=== PATIENT | male | born 1965 | race African-American/Black ===

== ENCOUNTER 2017-03-28 10:33 | Inpatient (IN) | payer SELFPAY ==
[2017-03-28] VITALS (13 sets, daily range): BP systolic 150–212; BP diastolic 88–120; PULSE 58–69; RESP 12–26; TEMP 98.7–99; O2SAT 94–99
[~2017-03-28] VITALS: Ht 172.7 cm; Wt 60.5 kg
[~2017-03-28 10:33] MED LIST: 1-ME1LIQ PO
[2017-03-28] MEDS ORDERED: SODIUM CHLORIDE 0.9% FLUSH 10 ML FLUSH IVF PRN (11:30)
[2017-03-28] MEDS ORDERED: FUROSEMIDE 40 MG/4 ML VIAL IVP ONE (11:30)
--- NOTE | 2017-03-28 11:30 | PD ---
HPI Chief Complaint: Edema Time Seen by Provider: 11:17 Travel History International Travel<30 days: No Contact w/Intl Traveler<30days: No Traveled to known affect area: No History of Present Illness HPI 52-year-old Afro[place] male presents the emergency department with bilateral lower extremity edema and discomfort for the past several days. Patient states he is a smoker and recently developed a cough over the past few days. Patient denies significant fever, chills, or abdominal discomfort. Blood pressure is noted to be elevated in triage at 200/106. Patient currently takes no medication. Patient denies history of liver disease or kidney disease. Patient states he has been coughing up some phlegm in the laceration couple of days. He denies dyspnea with exertion. He states lower extremity edema has been noted for the past week and seems to be worsening. He said increasing achy discomfort. 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 Currently his pain is maybe 3/10. He has no known drug allergies. PFSH Past Medical History Diminished Hearing: No Hypertension: Yes Past Surgical History Surgical History: No Previous Surgery Social History Alcohol Use: No Tobacco Use: Yes (1/2 PPD) Substance Use: Yes (OPIATES DEPENDENT, MARIJUANA, HEROINE, COCCAINE) Allergies-Medications (Allergen,Severity, Reaction): Coded Allergies: No Known Allergies (Unverified , 03/28/17) Reported Meds & Prescriptions Reported Meds & Active Scripts Active No Active Prescriptions or Reported Medications Review of Systems Except as stated in HPI: all other systems reviewed are Neg General / Constitutional: No: Fever, Chills Eyes: No: Visual changes HENT: Positive: Sore Throat, Rhinitis (scratchy), Rhinorrhea, Congestion, No: Headaches, Vertigo, Lightheadedness, Nosebleed, Neck Stiffness, Neck Pain, Gingival Bleeding, Dental Difficulties, Ear Discharge, Earache Cardiovascular: Positive: Edema, No: Chest Pain or Discomfort, Palpitations, Irregular Rhythm, Tachycardia, Diaphoresis, Syncope, Dyspnea on exertion, Varicosities, Varicosities, Phlebitis, Claudication Respiratory: Positive: Cough, Other (see history present illness), No: Shortness of Breath, Wheezing, Sneezing, Orthopnea, Hemoptysis, Night Sweats, Pleuritic Pain Gastrointestinal: No: Nausea, Vomiting, Diarrhea, Abdominal Pain Genitourinary: No: Dysuria Musculoskeletal: No: Pain Skin: No Rash Neurologic: No: Weakness Psychiatric: No: Depression Endocrine: No: Polydipsia Hematologic/Lymphatic: No: Easy Bruising Physical Exam Narrative GENERAL: Patient appears no acute distress. SKIN: Warm and dry. Normal color. Normal turgor. Patient has bilateral nonpitting 2+ edema with question of increased warmth on the right. No obvious signs of cellulitis. Patient has multiple superficial abrasions which are old. HEAD: Atraumatic. Normocephalic. EYES: Pupils equal and round. No scleral icterus. No injection or drainage. ENT: No nasal bleeding or discharge. Mucous membranes pink and moist. NECK: Trachea midline. No JVD. CARDIOVASCULAR: Regular rate and rhythm. No murmurs gallops or rubs. Patient has normal. Both pedal and posterior tibialis of the lower extremities. RESPIRATORY: No accessory muscle use. Crackles in both bases to auscultation. Breath sounds equal bilaterally. No wheezes rales or rhonchi. GASTROINTESTINAL: Abdomen soft, non-tender, nondistended. Hepatic and splenic margins not palpable. MUSCULOSKELETAL: Extremities without clubbing, cyanosis, or edema. No obvious deformities. Negative Homans sign. NEUROLOGICAL: Awake and alert. No obvious cranial nerve deficits. Motor grossly within normal limits. Five out of 5 muscle strength in the arms and legs. Normal speech. PSYCHIATRIC: Appropriate mood and affect; insight and judgment normal. Data Data Last Documented VS Vital Signs Date Time Temp Pulse Resp B/P (MAP) Pulse Ox O2 Delivery O2 Flow Rate FiO2 03/28/17 15:00 66 23 193/120 (144) 99 Room Air 03/28/17 10:34 98.7 Orders Orders Complete Blood Count With Diff (03/28/17 11:23) Comprehensive Metabolic Panel (03/28/17 11:23) B-Type Natriuretic Peptide (03/28/17 11:23) Act Partial Throm Time (Ptt) (03/28/17 11:23) Prothrombin Time / Inr (Pt) (03/28/17 11:23) Magnesium (Mg) (03/28/17 11:23) Ckmb (Isoenzyme) Profile (03/28/17 11:23) Troponin I (03/28/17 11:23) Urinalysis - C+S If Indicated (03/28/17 11:23) Iv Access Insert/Monitor (03/28/17 11:23) Electrocardiogram (03/28/17 11:23) Ecg Monitoring (03/28/17 11:23) Oximetry (03/28/17 11:23) Oxygen Administration (03/28/17 11:23) Chest, Single Ap (03/28/17 11:23) Sodium Chloride 0.9% Flush (Ns Flush) (03/28/17 11:30) Furosemide Inj (Lasix Inj) (03/28/17 11:30) Lactic Acid (03/28/17 11:23) CKMB (03/28/17 11:40) CKMB% (03/28/17 11:40) Us Leg Venous Doppler Bilat (03/28/17 12:36) Lisinopril (Prinivil) (03/28/17 13:15) Nitroglycerin 2% Oint (Nitroglycerin 2% (03/28/17 13:15) Labs Laboratory Tests Test 03/28/17 11:40 03/28/17 11:45 White Blood Count 8.6 TH/MM3 Red Blood Count 5.09 MIL/MM3 Hemoglobin 12.4 GM/DL Hematocrit 39.2 % Mean Corpuscular Volume 76.9 FL Mean Corpuscular Hemoglobin 24.4 PG Mean Corpuscular Hemoglobin Concent 31.8 % Red Cell Distribution Width 17.1 % Platelet Count 191 TH/MM3 Mean Platelet Volume 7.5 FL Neutrophils (%) (Auto) 68.0 % Lymphocytes (%) (Auto) 22.3 % Monocytes (%) (Auto) 7.9 % Eosinophils (%) (Auto) 1.4 % Basophils (%) (Auto) 0.4 % Neutrophils # (Auto) 5.9 TH/MM3 Lymphocytes # (Auto) 1.9 TH/MM3 Monocytes # (Auto) 0.7 TH/MM3 Eosinophils # (Auto) 0.1 TH/MM3 Basophils # (Auto) 0.0 TH/MM3 CBC Comment DIFF FINAL Differential Comment Prothrombin Time 10.7 SEC Prothromb Time International Ratio 1.0 RATIO Activated Partial Thromboplast Time 29.2 SEC Blood Urea Nitrogen 8 MG/DL Creatinine 1.09 MG/DL Random Glucose 85 MG/DL Total Protein 6.9 GM/DL Albumin 3.2 GM/DL Calcium Level 8.8 MG/DL Magnesium Level 2.2 MG/DL Alkaline Phosphatase 74 U/L Aspartate Amino Transf (AST/SGOT) 25 U/L Alanine Aminotransferase (ALT/SGPT) 23 U/L Total Bilirubin 0.3 MG/DL Sodium Level 141 MEQ/L Potassium Level 4.2 MEQ/L Chloride Level 108 MEQ/L Carbon Dioxide Level 28.1 MEQ/L Anion Gap 5 MEQ/L Estimat Glomerular Filtration Rate 86 ML/MIN Lactic Acid Level 0.7 mmol/L Total Creatine Kinase 462 U/L Creatine Kinase MB 2.9 NG/ML Creatine Kinase MB % 0.6 % Troponin I LESS THAN 0.02 NG/ML B-Type Natriuretic Peptide 71 PG/ML Urine Color YELLOW Urine Turbidity CLEAR Urine pH 7.5 Urine Specific [place] 1.021 Urine Protein TRACE mg/dL Urine Glucose (UA) NEG mg/dL Urine Ketones NEG mg/dL Urine Occult Blood NEG Urine Nitrite NEG Urine Bilirubin NEG Urine Urobilinogen LESS THAN 2.0 MG/DL Urine Leukocyte Esterase NEG Urine RBC 1 /hpf Urine WBC 1 /hpf Urine Mucus FEW /lpf Microscopic Urinalysis Comment CULT NOT INDICATED MDM Medical Decision Making Medical Screen Exam Complete: Yes Emergency Medical Condition: Yes Medical Record Reviewed: Yes Differential Diagnosis Pedal edema. CHF. Hypertension. Renal disease. Liver disease. Electrolyte imbalance. Decreased albumin. Tumor. Narrative Course Patient appears medically stable at time of exam. Chest x-ray and EKG are ordered. Labs ordered including CBC, CMP, proBNP, lactic acid, cardiac panel, coagulation studies, magnesium, and urinalysis. IV access is obtained patient is given 40 mg Lasix IV. EKG shows left anterior fascicular block with moderate T wave abnormality with inferior ischemia considered. This is reviewed with Dr. Cornell. CBC is unremarkable. Coagulation studies are normal. Urinalysis is normal. CMP shows no acute abnormalities with a GFR of 86, creatinine of 1.09. Lactic acid 0.7. On 0.02. BNP is 71. Creatinine kinase is slightly elevated at 462. Albumin slightly low at 3.2. Urinalysis is unremarkable. Patient is discussed with Dr. Cornell who recommends ultrasounds of both lower extremities to rule out DVT. Patient is given 20 mg lisinopril by mouth, as well as 1 inch nitroglycerin paste for his continued systolic blood pressure over 200. Ultrasound shows no significant findings in both lower extremities. Patient is discussed with Dr. Wilde regarding the patient and his ongoing hypertension. Dr. Cornell recommends admitting the patient to observation to get his blood pressure under control. Call was placed to the hospitalist for admission. Diagnosis Primary Impression: Hypertensive crisis Additional Impression: Pedal edema Admitting Information Admitting Physician Requests: Observation Scripts No Active Prescriptions or Reported Meds Condition: Stable Edilson Parsons Mar 28, 2017 11:30
--- NOTE | 2017-03-28 11:40 | RADRPT ---
EXAM DATE/TIME: 03/28/2017 11:39 [facility] COMPARISON: CHEST PA & LAT, January 05, 2015, 22:03. INDICATIONS : Swollen ankles MEDICAL HISTORY : None. SURGICAL HISTORY : None. ENCOUNTER: Initial ACUITY: 2 days PAIN SCORE: 0/10 LOCATION: Bilateral chest FINDINGS: A single view of the chest demonstrates the lungs to be symmetrically aerated without evidence of mas s, infiltrate or effusion. The cardiomediastinal contours are unremarkable. Osseous structures are intact. CONCLUSION: Normal examination for a patient of this age. No significant change has occurred. Kenan Burgess MD on March 28, 2017 at 11:38 Board Certified Radiologist. This report was verified electronically.
[2017-03-28 11:54] LABS: AUTOMATED NEUTROPHIL # 5.9 TH/MM3 (1.8-7.7); BASOPHIL % 0.4 % (0.0-2.0); EOSINOPHIL # 0.1 TH/MM3 (0-0.4); EOSINOPHIL % 1.4 % (0.0-4.0); HEMATOCRIT 39.2 % (39.0-51.0); HEMO FLAGS DIFF FINAL; LYMPH % 22.3 % (9.0-44.0); LYMPHOCYTE # 1.9 TH/MM3 (1.0-4.8); MEAN CELL VOLUME 76.9 FL (80.0-100.0); MEAN CORPUSCULAR HEMOGLOBIN 24.4 PG (27.0-34.0); MEAN CORPUSCULAR HGB CONC 31.8 % (32.0-36.0); MONO % 7.9 % (0.0-8.0); PLATELET COUNT 191 TH/MM3 (150-450); RED BLOOD COUNT 5.09 MIL/MM3 (4.50-5.90); RED CELL DISTRIBUTION WIDTH 17.1 % (11.6-17.2); WHITE BLOOD COUNT 8.6 TH/MM3 (4.0-11.0)
[2017-03-28 12:00] LABS: BLOOD, URINE NEG (NEG); GLUCOSE,URINE NEG (NEG); KETONE, URINE NEG (NEG); MUCUS URINE FEW /lpf (OCC); NITRITE,URINE NEG (NEG); PH, URINE 7.5 (5.0-8.5); URINE COLOR YELLOW (YELLW/STRAW)
[2017-03-28 12:02] LABS: COMMENT (UR) CULT NOT INDICATED; CULTURE IF INDICATED CULT NOT INDICATED
[2017-03-28 12:07] LABS: APTT (PATIENT) 29.2 SEC (24.3-30.1); PROTHROMBIN TIME - PATIENT 10.7 SEC (9.8-11.6)
[2017-03-28 12:12] LABS: ALT (GPT) 23 U/L (12-78); ANION GAP 5 MEQ/L (5-15); AST (GOT) 25 U/L (15-37); BICARBONATE 28.1 MEQ/L (21.0-32.0); BLOOD UREA NITROGEN 8 MG/DL (7-18); CHLORIDE 108 MEQ/L (98-107); GLOMERULAR FILTRATION RATE 86 ML/MIN (>89); MAGNESIUM 2.2 MG/DL (1.5-2.5); POTASSIUM 4.2 MEQ/L (3.5-5.1); SODIUM (NA) 141 MEQ/L (136-145)
[2017-03-28 12:16] LABS: ALKALINE PHOSPHATASE 74 U/L (45-117); CREATINE KINASE 462 U/L (39-308); TOTAL BILIRUBIN ADULT 0.3 MG/DL (0.2-1.0)
[2017-03-28 12:28] LABS: CKMB 2.9 NG/ML (0.5-3.6)
[2017-03-28] MEDS ORDERED: NITROGLYCERIN 2% OINT 1 GM PACKET TOPICAL ONE (13:15)
[2017-03-28] MEDS ORDERED: LISINOPRIL 20 MG TAB PO ONE (13:15)
--- NOTE | 2017-03-28 15:07 | RADRPT ---
EXAM DATE/TIME: 03/28/2017 14:19 [facility] COMPARISON: No previous studies available for comparison. INDICATIONS : Bilateral leg swelling. MEDICAL HISTORY : Hypertension. Multisubstance use. SURGICAL HISTORY : None. ENCOUNTER: Initial ACUITY: 3 days PAIN SCORE: 3/10 LOCATION: Bilateral leg. TECHNIQUE: Venous ultrasound of the left and right leg was performed from the inguinal ligament to the proximal calf. Real-time, color Doppler and spectral tracing, compression and augmentation techniques were us ed. FINDINGS: RIGHT LEG: There is normal compressibility of the deep venous system from the inguinal region to the proximal ca lf. No echogenic clot is seen in the lumen of the common femoral, femoral, popliteal, and posterior tibial veins. There is a normal response of the venous system to proximal and distal augmentation an d respiration. LEFT LEG: There is normal compressibility of the deep venous system from the inguinal region to the proximal ca lf. No echogenic clot is seen in the lumen of the common femoral, femoral, popliteal, and posterior tibial veins. There is a normal response of the venous system to proximal and distal augmentation an d respiration. CONCLUSION: Normal examination. Jose Lopes Jr., MD on March 28, 2017 at 15:04 Board Certified Radiologist. This report was verified electronically.
[2017-03-28] MEDS ORDERED: LACTULOSE SYRUP 20 GM/30 ML CUP PO PRN (16:15)
[2017-03-28] MEDS ORDERED: ACETAMINOPHEN 325 MG TAB PO PRN (16:15)
[2017-03-28] MEDS ORDERED: SODIUM CHLORIDE 0.9% FLUSH 10 ML FLUSH IV FLUSH PRN (16:15)
[2017-03-28] MEDS ORDERED: SENNOSIDES 8.6 MG TAB PO PRN (16:15)
[2017-03-28] MEDS ORDERED: BISACODYL 10 MG SUPP RECTAL PRN (16:15)
[2017-03-28] MEDS ORDERED: MAGNESIUM HYDROXIDE SUSP 30 ML CUP PO PRN (16:15)
[2017-03-28] MEDS ORDERED: ENALAPRILAT 1.25 MG/ML VIAL IV PUSH PRN (16:15)
--- NOTE | 2017-03-28 16:39 | HHI.HP ---
[facility] Service Family Medicine Primary Care Physician No Primary Care Physician Admission Diagnosis Hypertension/Pedal Edema Diagnoses: International Travel<30 Days: No Contact w/Intl Traveler<30days: No History of Present Illness Patient is a 52 year old male with a history of HTN who presents to the ED for evaluation of LE edema. Onset was 2-3 days ago, sudden onset, not associated with pain. He does have [place] Horses over the last few months, lasting 4 minutes at a time. He does [employer] work for a living and has no symptoms with exertion. BP improving on meds given in ED but still elevated. He denies any other symptoms. Diet is notable for lots of salt in home-cooked meals, meats. He eats a good amount of vegetables. No history of HTN in the past, but has had intermittent headaches, but none in the last couple of days. Review of Systems Constitutional: DENIES: Fever, Chills Eyes: COMPLAINS OF: Blurred vision (floaters), DENIES: Diplopia Ears, nose, mouth, throat: DENIES: Hearing loss, Running Nose, Epistaxis Respiratory: DENIES: Cough, Hemoptysis, Sputum production, Shortness of breath Cardiovascular: COMPLAINS OF: Lower Extremity Edema, DENIES: Chest pain, Palpitations, Syncope Genitourinary: DENIES: Urinary frequency, Hematuria, Dysuria Musculoskeletal: DENIES: Muscle aches, Joint Swelling, Back pain, Neck pain Integumentary: DENIES: Pruritus, Rash Hematologic/lymphatic: DENIES: Bruising, Lymphadenopathy Immunologic/allergic: DENIES: Eczema, Urticaria Neurologic: COMPLAINS OF: Headache (intermittent), DENIES: Abnormal gait, Paresthesias, Seizures, Poor Balance Psychiatric: DENIES: Anxiety, Depression Past Family Social History Past Medical History HTN - diagnosed 2 years ago, untreated Past Surgical History None Reported Medications Reported Meds & Active Scripts Active No Active Prescriptions or Reported Medications Allergies: Coded Allergies: No Known Allergies (Unverified , 03/28/17) Active Ordered Medications Inpatient Medications Acetaminophen (Tylenol) 650 mg Q6H PRN PO PAIN SCALE 1 TO 10, FEVER >101; Start 03/28/17 at 16:15; Status UNV Bisacodyl (Dulcolax Supp) 10 mg DAILY PRN RECTAL SEVERE CONSITIPATION; Start 03/28/17 at 16:15; Status UNV Clonidine (Catapres) 0.1 mg Q6H PRN PO SBP> OR = 180, DBP> OR = 100; Start at 16:15; Status UNV Enalaprilat (Vasotec Inj) 1.25 mg Q6H PRN IV PUSH SBP> OR = 180, DBP> OR = 100 ; Start 03/28/17 at 16:15; Status UNV Enoxaparin Sodium (Lovenox Inj) 40 mg Q24H SQ ; Start 03/28/17 at 16:15; Status UNV Furosemide (Lasix Inj) 40 mg ONCE ONCE IVP Last administered on 03/28/17 11: 56; Start 03/28/17 at 11:30; Stop 03/28/17 at 11:31; Status DC Lactulose (Lactulose Liq) 30 ml DAILY PRN PO SEVERE CONSITIPATION; Start 03/28 at 16:15; Status UNV Lisinopril (Prinivil) 20 mg ONCE ONCE PO Last administered on 03/28/17 13:26 ; Start 03/28/17 at 13:15; Stop 03/28/17 at 13:16; Status DC Magnesium Hydroxide (Milk Of Magnesia Liq) 30 ml Q12H PRN PO Mild constipation ; Start 03/28/17 at 16:15; Status UNV Nitroglycerin (Nitroglycerin 2% Oint) 1 inch ONCE ONCE TOPICAL Last administered on 03/28/17 13:27; Start 03/28/17 at 13:15; Stop 03/28/17 at 13 :16; Status DC Senna/Docusate Sodium (Melva-Colace) 1 tab BID PO ; Start 03/28/17 at 21:00; Status UNV Sennosides (Senokot) 17.2 mg Q12H PRN PO Moderate constipation; Start at 16:15; Status UNV Sodium Chloride (NS Flush) 2 ml BID IV FLUSH ; Start 03/28/17 at 21:00; Status UNV Family History HTN: father ( CAD/bypass complications), GM, brother, self Children: lupus in daughter Social History Cigarettes: 1 PPD x 10+ years EtOH: occasional Illicit: oxycodone off streets, 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 SKIN: Warm and dry. Large tattoo on upper back. HEAD: Atraumatic. Normocephalic. EYES: PERRLA. EOMI. No scleral icterus. Mild injection noted. ENT: No nasal bleeding or discharge. Mucous membranes pink and moist. Poor dentition. NECK: Trachea midline. No JVD. No LAD. CARDIOVASCULAR: Regular rate and rhythm. No murmurs on auscultation. Normal PMI. Distal pulses 2+ bilaterally in UE and LEs. RESPIRATORY: No accessory muscle use. Clear to auscultation without wheezes or rhonchi. Breath sounds equal bilaterally. GASTROINTESTINAL: Abdomen soft, non-tender, nondistended. Hepatic and splenic margins not palpable. MUSCULOSKELETAL: Extremities without clubbing, cyanosis, or edema. No obvious deformities. NEUROLOGICAL: Awake and alert. No obvious CN deficits. Motor grossly within normal limits. 5/5 muscle strength in the arms and legs. Normal speech. PSYCHIATRIC: Appropriate mood and affect; insight and judgment normal. Laboratory Laboratory Tests Test 03/28/17 11:40 03/28/17 11:45 White Blood Count 8.6 Red Blood Count 5.09 Hemoglobin 12.4 Hematocrit 39.2 Mean Corpuscular Volume 76.9 Mean Corpuscular Hemoglobin 24.4 Mean Corpuscular Hemoglobin Concent 31.8 Red Cell Distribution Width 17.1 Platelet Count 191 Mean Platelet Volume 7.5 Neutrophils (%) (Auto) 68.0 Lymphocytes (%) (Auto) 22.3 Monocytes (%) (Auto) 7.9 Eosinophils (%) (Auto) 1.4 Basophils (%) (Auto) 0.4 Neutrophils # (Auto) 5.9 Lymphocytes # (Auto) 1.9 Monocytes # (Auto) 0.7 Eosinophils # (Auto) 0.1 Basophils # (Auto) 0.0 CBC Comment DIFF FINAL Differential Comment Prothrombin Time 10.7 Prothromb Time International Ratio 1.0 Activated Partial Thromboplast Time 29.2 Blood Urea Nitrogen 8 Creatinine 1.09 Random Glucose 85 Total Protein 6.9 Albumin 3.2 Calcium Level 8.8 Magnesium Level 2.2 Alkaline Phosphatase 74 Aspartate Amino Transf (AST/SGOT) 25 Alanine Aminotransferase (ALT/SGPT) 23 Total Bilirubin 0.3 Sodium Level 141 Potassium Level 4.2 Chloride Level 108 Carbon Dioxide Level 28.1 Anion Gap 5 Estimat Glomerular Filtration Rate 86 Lactic Acid Level 0.7 Total Creatine Kinase 462 Creatine Kinase MB 2.9 Creatine Kinase MB % 0.6 Troponin I LESS THAN 0.02 B-Type Natriuretic Peptide 71 Urine Color YELLOW Urine Turbidity CLEAR Urine pH 7.5 Urine Specific [place] 1.021 Urine Protein TRACE Urine Glucose (UA) NEG Urine Ketones NEG Urine Occult Blood NEG Urine Nitrite NEG Urine Bilirubin NEG Urine Urobilinogen LESS THAN 2.0 Urine Leukocyte Esterase NEG Urine RBC 1 Urine WBC 1 Urine Mucus FEW Microscopic Urinalysis Comment CULT NOT INDICATED Result Diagram: 03/28/17 1140 03/28/17 1140 Imaging Last Impressions Lower Extremity Ultrasound 03/28/17 1236 Signed Impressions: Service Date/Time: Tuesday, March 28, 2017 14:19 - CONCLUSION: Normal examination. Jose Lopes Jr., MD Chest X-Ray 03/28/17 1123 Signed Impressions: Service Date/Time: Tuesday, March 28, 2017 11:39 - CONCLUSION: Normal examination for a patient of this age. No significant change has occurred. Kenan Burgess MD Caprini VTE Risk Assessment Caprini VTE Risk Assessment: Mod/High Risk (score >= 2) Caprini Risk Assessment Model Point Value = 1 Point Value = 2 Point Value = 3 Point Value = 5 Age 41-60 Minor surgery BMI > 25 kg/m2 Swollen legs Varicose veins or History of unexplained or recurrent spontaneous Oral contraceptives or hormone replacement Sepsis (< 1 month) Serious lung disease, including pneumonia (< 1 month) Abnormal pulmonary function Acute myocardial infarction Congestive heart failure (< 1 month) History of inflammatory bowel disease Medical patient at bed rest Age 61-74 Arthroscopic surgery Major open surgery (> 45 min) Laparoscopic surgery (> 45 min) Malignancy Confined to bed (> 72 hours) Immobilizing plaster cast Central venous access Age >= 75 History of VTE Family history of VTE Factor V Leiden Prothrombin [id number] Lupus anticoagulant Anticardiolipin antibodies Elevated serum homocysteine Heparin-induced thrombocytopenia Other congenital or acquired thrombophilia Stroke (< 1 month) Elective arthroplasty Hip, pelvis, or leg fracture Acute spinal cord injury (< 1 month) Prophylaxis Regimen Total Risk Factor Score Risk Level Prophylaxis Regimen 0-1 Low Early ambulation 2 Moderate Order ONE of the following: *Sequential Compression Device (SCD) *Heparin 5000 units SQ BID 3-4 Higher Order ONE of the following medications: *Heparin 5000 units SQ TID *Enoxaparin/Lovenox 40 mg SQ daily (WT < 150 kg, CrCl > 30 mL/min) *Enoxaparin/Lovenox 30 mg SQ daily (WT < 150 kg, CrCl > 10-29 mL/min) *Enoxaparin/Lovenox 30 mg SQ BID (WT < 150 kg, CrCl > 30 mL/min) AND/OR *Sequential Compression Device (SCD) 5 or more Highest Order ONE of the following medications: *Heparin 5000 units SQ TID (Preferred with Epidurals) *Enoxaparin/Lovenox 40 mg SQ daily (WT < 150 kg, CrCl > 30 mL/min) *Enoxaparin/Lovenox 30 mg SQ daily (WT < 150 kg, CrCl > 10-29 mL/min) *Enoxaparin/Lovenox 30 mg SQ BID (WT < 150 kg, CrCl > 30 mL/min) AND *Sequential Compression Device (SCD) Assessment and Plan Assessment and Plan 52 year old male who presents with HTN urgency and LE edema Admit to observation Code Status Full Code Discussed Condition With SDW Dr. Velarde, WDW Dr. Lieberman Problem List: (1) Hypertensive urgency ICD Codes: I16.0 - Hypertensive urgency Status: Acute Plan: Presented with HTN urgency, initial BP 205/106. Given lisinopril and nitropaste. BP remained elevated so residents paged for admission. BP 170/102 on re-evaluation at 1630, appropriately responsive. Goal BP <160/90 tonight, with overall goal <140/90 * Admit to observation * VS q4hr * Amlodipine 5mg daily to initiate now * Clonidine PRN 0.1mg PO for BP >180/100 * Cardiac enzymes and troponin to trend along with EKG * Lasix 40mg x 1 in ED, will continue Lasix 40mg daily for now * Echocardiogram * Repeat labs in AM * If blood pressure does not improve with by mouth medications, will initiate nicardipine drip as needed (2) HTN (hypertension) ICD Codes: I10 - HTN (hypertension) Status: Chronic Plan: As above (3) Tobacco dependency ICD Codes: F17.200 - Tobacco dependency Status: Acute Plan: Declines nicotine patch Counseling on tobacco cessation UDS ordered due to history of tobacco dependence (4) Fluids/Electrolytes/Nutrition/Prophylaxis Status: Acute Plan: Fluids: tolerating PO Electrolytes: monitor and replete as needed Nutrition: heart-healthy diet DVT Prophylaxis: Early ambulation. SCDs. Lovenox GI Prophylaxis: None indicated Angelique Epps MD R2 Mar 28, 2017 16:39
[2017-03-28] MEDS: ENOXAPARIN SODIUM 40 MG/0.4 ML SYRINGE SQ SCH (17:00)
[2017-03-28] MEDS: cloNIDine HCL 0.1 MG TAB PO PRN ×2 (18:04→21:16)
[2017-03-28] MEDS ORDERED: niCARdipine INJ 25 MG in SODIUM CHLOR 0.9% 250 ML INJ 240 ML IV PRN (18:30)
[2017-03-28 18:47] LABS: CREATINE KINASE 419 U/L (39-308)
[2017-03-28] MEDS: DOCUSATE SODIUM 50 MG/SENNA 8.6 MG TAB PO SCH (20:41)
[2017-03-28] MEDS: SODIUM CHLORIDE 0.9% FLUSH 10 ML FLUSH IV FLUSH SCH (20:41)
[2017-03-28] MEDS ORDERED: FUROSEMIDE 40 MG/4 ML VIAL IV PUSH ONE (20:45)
[2017-03-28] MEDS ORDERED: CHLORHEXIDINE GLUCONATE 2 % 1 PACK (2 CLOTHS)(extra cloths) TOPICAL PRN (20:45)
[2017-03-28] MEDS: CHLORHEXIDINE GLUCONATE 2 % 1 PACK (2 CLOTHS)(taper/protocol) TOPICAL SCH (22:27)
[2017-03-28] MEDS ORDERED: amLODIPine BESYLATE 5 MG TAB PO ONE (22:30)
[2017-03-29] VITALS (18 sets, daily range): BP systolic 118–188; BP diastolic 83–113; PULSE 57–85; RESP 17–31; TEMP 98.1–98.9; O2SAT 94–100
[2017-03-29 00:06] LABS: CREATINE KINASE 376 U/L (39-308)
[2017-03-29 00:18] LABS: CKMB 1.9 NG/ML (0.5-3.6)
[2017-03-29 05:47] LABS: AUTOMATED NEUTROPHIL # 6.7 TH/MM3 (1.8-7.7); BASOPHIL # 0.1 TH/MM3 (0-0.2); BASOPHIL % 0.5 % (0.0-2.0); EOSINOPHIL # 0.1 TH/MM3 (0-0.4); EOSINOPHIL % 1.2 % (0.0-4.0); HEMATOCRIT 42.8 % (39.0-51.0); HEMO FLAGS DIFF FINAL; LYMPH % 22.6 % (9.0-44.0); LYMPHOCYTE # 2.2 TH/MM3 (1.0-4.8); MEAN CELL VOLUME 76.9 FL (80.0-100.0); MEAN CORPUSCULAR HEMOGLOBIN 24.6 PG (27.0-34.0); MONO % 7.8 % (0.0-8.0); NEUT % 67.9 % (16.0-70.0); PLATELET COUNT 208 TH/MM3 (150-450); RED BLOOD COUNT 5.56 MIL/MM3 (4.50-5.90); WHITE BLOOD COUNT 9.9 TH/MM3 (4.0-11.0)
[2017-03-29 06:10] LABS: BICARBONATE 31.3 MEQ/L (21.0-32.0); POTASSIUM 3.6 MEQ/L (3.5-5.1)
[2017-03-29] MEDS ORDERED: POTASSIUM CHLORIDE 20 MEQ CONTROLLED RELEASE TAB PO ONE (07:00)
[2017-03-29] MEDS ORDERED: LISINOPRIL 20 MG TAB PO ONE (08:30)
[2017-03-29] MEDS ORDERED: FUROSEMIDE 40 MG TAB PO SCH (09:00)
[2017-03-29] MEDS ORDERED: amLODIPine BESYLATE 5 MG TAB PO SCH (09:00)
[2017-03-29] MEDS: HYDROCHLOROTHIAZIDE 25 MG TAB PO SCH (09:28)
[2017-03-29] MEDS: SODIUM CHLORIDE 0.9% FLUSH 10 ML FLUSH IV FLUSH SCH ×2 (09:28→20:34)
[2017-03-29] MEDS: DOCUSATE SODIUM 50 MG/SENNA 8.6 MG TAB PO SCH ×2 (09:28→20:34)
--- NOTE | 2017-03-29 12:22 | ECHRPT ---
Indication: hypertensive heart disease CONCLUSIONS The left ventricular systolic function is normal with an estimated ejection fraction in the range of 55-60%. Normal left ventricular size. Mild concentric left ventricular hypertrophy. No regional wall motion abnormalities are present. Structurally normal mitral valve. Trace mitral valve regurgitation. Trace aortic valve regurgitation. There is trace tricuspid valve regurgitation. The estimated pulmonary arterial pressure is 26 mmHg. BP: 157 / 102 HR: 72 Rhythm: Sinus MEASUREMENTS (Male / Female) Normal Values Technical Quality:Good 2D ECHO LV Diastolic Diameter PLAX 4.8 cm 4.2 - 5.9 / 3.9 - 5.3 cm LV Systolic Diameter PLAX 3.3 cm IVS Diastolic Thickness 1.2 cm 0.6 - 1.0 / 0.6 - 0.9 cm LVPW Diastolic Thickness 1.3 cm 0.6 - 1.0 / 0.6 - 0.9 cm LV Relative Wall Thickness 0.5 RV Internal Dim ED PLAX 2.2 cm LVOT Diameter 2.0 cm LA Systolic Diameter LX 3.0 cm 3.0 - 4.0 / 2.7 - 3.8 cm LV Ejection Fraction MOD 4C 59.5 % LV Cardiac Index MOD 4C 3184.0 cm/minm LV Ejection Fraction 4C AL 61.4 % LV Cardiac Index 4C AL 3412.2 cm/minm M-MODE Aortic Root Diameter MM 3.1 cm AV Cusp Separation MM 2.2 cm DOPPLER AV Peak Velocity 153.0 cm/s AV Peak Gradient 9.4 mmHg AI Peak Velocity 486.0 cm/s AI Peak Gradient 94.5 mmHg AI Pressure Half Time 489.5 ms LVOT Peak Velocity 123.0 cm/s LVOT Peak Gradient 6.1 mmHg AV Area Cont Eq pk 2.5 cm MV Area PHT 2.3 cm Mitral E Point Velocity 64.7 cm/s Mitral A Point Velocity 97.7 cm/s Mitral E to A Ratio 0.7 LV E' Lateral Velocity 4.0 cm/s Mitral E to LV E' Lateral Ratio 16.2 LV E' Septal Velocity 5.4 cm/s Mitral E to LV E' Septal Ratio 12.1 TR Peak Velocity 205.0 cm/s TR Peak Gradient 16.8 mmHg Right Atrial Pressure 10.0 mmHg Pulmonary Artery Systolic Pressu 26.8 mmHg Right Ventricular Systolic Press 26.8 mmHg PV Peak Velocity 105.0 cm/s PV Peak Gradient 4.4 mmHg FINDINGS LEFT VENTRICLE The left ventricular systolic function is normal with an estimated ejection fraction in the range of 55-60%. Normal left ventricular size. Mild concentric left ventricular hypertrophy. No regional wall motion abnormalities are present. RIGHT VENTRICLE Normal right ventricular size and systolic function. LEFT ATRIUM The left atrial size is normal. RIGHT ATRIUM The right atrial size is normal. ATRIAL SEPTUM Normal atrial septal thickness without atrial level shunting by limited color doppler interrogation. AORTA The aortic root and proximal ascending aorta are normal in size on limited imaging. MITRAL VALVE Structurally normal mitral valve. Trace mitral valve regurgitation. AORTIC VALVE Trileaflet aortic valve. Trace aortic valve regurgitation. TRICUSPID VALVE Structurally normal tricuspid valve. There is trace tricuspid valve regurgitation. The estimated pulmonary arterial pressure is 26 mmHg. PULMONARY VALVE No pulmonary valve regurgitation or stenosis. VESSELS The inferior vena cava is normal in size. PERICARDIUM No pericardial effusion. Juan Ravi MD (Electronically Signed) Final Date:29 March 2017 12:22
--- NOTE | 2017-03-29 12:30 | HHI.FPPN ---
Subjective Remarks Patient states that he is doing much better this morning. His edema has fully resolved. He states that he had left cramps continuously overnight, but is a chronic condition for him. No chest pain, no shortness of breath, no abdominal pain, no nausea vomiting, no diarrhea constipation. No fevers or chills. When asked about his usual regimen, he states that he eats 2 meals a day and has abdominal pain after meals. He usually has 2 BMs a day, but no chronic diarrhea. He states that he usually does cocaine and opiates. He admits that he is addicted. He states that he does drugs to get away from his usual life. He is having a rough time right now. (Merle Velarde MD R1) Objective Vitals Vital Signs Date Time Temp Pulse Resp B/P (MAP) Pulse Ox O2 Delivery O2 Flow Rate FiO2 03/29/17 12:00 79 31 100 03/29/17 10:43 67 27 165/97 (119) 99 03/29/17 10:40 72 28 168/105 (126) 97 03/29/17 10:00 75 30 96 03/29/17 09:30 73 17 152/93 (112) 96 03/29/17 09:15 83 22 154/94 (114) 96 03/29/17 09:00 85 20 154/93 (113) 95 03/29/17 08:45 76 21 157/92 (113) 96 03/29/17 08:30 68 18 153/91 (111) 94 03/29/17 08:15 68 22 146/86 (106) 95 03/29/17 08:00 73 22 147/90 (109) 95 03/29/17 06:21 72 157/102 03/29/17 06:00 72 03/29/17 05:44 63 186/113 03/29/17 04:00 61 03/29/17 04:00 98.9 61 22 188/112 (137) 96 03/29/17 02:00 57 03/29/17 00:00 60 03/29/17 00:00 98.9 61 19 173/113 (133) 97 03/28/17 22:00 61 03/28/17 20:00 62 03/28/17 20:00 99.0 61 26 178/98 (124) 94 03/28/17 19:00 62 20 150/88 (108) 94 Room Air 03/28/17 18:33 60 15 205/102 (136) 97 Room Air 03/28/17 17:52 69 24 205/109 (141) 96 Room Air 03/28/17 17:00 170/104 (126) 03/28/17 15:00 66 23 193/120 (144) 99 Room Air 03/28/17 14:16 59 13 210/120 (150) 97 Room Air 03/28/17 13:02 61 13 212/115 (147) 94 Room Air I/O 03/28/17 03/28/17 03/28/17 03/29/17 03/29/17 03/29/17 07:00 15:00 23:00 07:00 15:00 23:00 Intake Total 100 ml Output Total 650 ml 300 ml 1400 ml Balance -650 ml -300 ml -1300 ml Intake Oral 100 ml Output Urine Total 650 ml 300 ml 1400 ml # Voids 1 1 # Bowel Movements 0 (Merle Velarde MD R1) Result Diagram: 03/29/17 0430 03/29/17 0430 Imaging Last Impressions Lower Extremity Ultrasound 03/28/17 1236 Signed Impressions: Service Date/Time: Tuesday, March 28, 2017 14:19 - CONCLUSION: Normal examination. Jose Lopes Jr., MD Chest X-Ray 03/28/17 1123 Signed Impressions: Service Date/Time: Tuesday, March 28, 2017 11:39 - CONCLUSION: Normal examination for a patient of this age. No significant change has occurred. Kenan Burgess MD Objective Remarks GENERAL: Well-nourished, well-developed thin patient laying in bed, in no acute distress. SKIN: Warm and dry. HEAD: Normocephalic. EYES: No scleral icterus. No injection or drainage. NECK: Supple, trachea midline. No JVD or lymphadenopathy. CARDIOVASCULAR: Regular rate and rhythm without murmurs, gallops, or rubs. RESPIRATORY: Breath sounds equal bilaterally. No accessory muscle use. GASTROINTESTINAL: Abdomen soft, non-tender, nondistended. EXTREMITIES: No cyanosis. Nonedematous, significant improvement from yesterday. NEUROLOGICAL: Awake, alert. Non-focal. (Merle Velarde MD R1) A/P Assessment and Plan 52 year old male who presents with HTN urgency and LE edema Admitted to inpatient in order to start drip. Discharge Planning Likely tomorrow after observing BP for today and d/cing nicardipine drip. (Merle Velarde MD R1) Attending Attestation THIS CASE WAS DISCUSSED IN DETAIL WITH THE RESIDENT PHYSICIANS Dr Brooks,Dr Epps, Dr Flannery and Dr Corey. I HAVE REVIEWED THE RECORD AND AGREE WITH THE ABOVE NOTE AND PLAN OF CARE WAS DISCUSSED. I HAVE AUTHORIZED THE ORDERS. (Rafita Lieberman MD) Problem List: (1) Hypertensive urgency ICD Codes: I16.0 - Hypertensive urgency Status: Acute Plan: Presented with HTN urgency, initial BP 205/106. Given lisinopril and nitropaste. BP remained elevated so residents paged for admission. BP 170/102 on re-evaluation at 1630, appropriately responsive. Goal BP <160/90 tonight, with overall goal <140/90 * Admit to observation, changed to inpatient after CDU declined his admittance. * VS q4hr * Amlodipine 5mg daily to initiate now * Clonidine PRN 0.1mg PO for BP >180/100 * Cardiac enzymes and troponin to trend along with EKG * were all negative * Lasix 40mg x 1 in ED, will continue Lasix 40mg BID for now * d/c'd on 03/29 due to resolution of edema * Echocardiogram * Repeat labs in AM * Nicardipine drip as initiated due to elevated BPs, d/c'd on 03/29 * BP regimen initiated today as follows, will monitor for effectiveness * HCTZ 25mg po qD and Lisinopril 20mg po qD in the AM * Amlodipine 5mg po qD at PM (2) HTN (hypertension) ICD Codes: I10 - HTN (hypertension) Status: Chronic Plan: As above (3) Drug abuse ICD Codes: F19.10 - Other psychoactive substance abuse, uncomplicated Status: Acute Plan: UDS positive for cocaine, opiates, and cannabinoids. * Spoke with patient about cessation of drug use * Will provide him information for counseling and rehab programs (4) Tobacco dependency ICD Codes: F17.200 - Tobacco dependency Status: Acute Plan: Declines nicotine patch Counseling on tobacco cessation UDS ordered due to history of tobacco dependence (5) Fluids/Electrolytes/Nutrition/Prophylaxis Status: Acute Plan: Fluids: tolerating PO Electrolytes: monitor and replete as needed Nutrition: heart-healthy diet DVT Prophylaxis: Early ambulation. SCDs. Lovenox GI Prophylaxis: None indicated (Merle Velarde MD R1) Merle Velarde MD R1 Mar 29, 2017 12:30 Rafita Lieberman MD Mar 29, 2017 18:41
--- NOTE | 2017-03-29 13:53 | EKG ---
Date Performed: 03/29/2017 Time Performed: 01:57:16 PTAGE: 52 years EKG: Sinus bradycardia Left anterior fascicular block Possible septal infarct - age undetermined Inferior/lateral T wave changes may be due to myocardial ischemia Abnormal ECG PREVIOUS TRACING : 03/28/2017 17.56 DOCTOR: Deng Doyle Interpretating Date/Time 03/29/2017 13:45:18
--- NOTE | 2017-03-29 14:06 | EKG ---
Date Performed: 03/28/2017 Time Performed: 17:56:05 PTAGE: 52 years EKG: ECTOPIC ATRIAL RHYTHM MARKED LEFT AXIS DEVIATION MODERATE T-WAVE ABNORMALITY, CONSIDER INFE RIOR ISCHEMIA ABNORMAL ECG PREVIOUS TRACING : 03/28/2017 11.46 DOCTOR: Deng Doyle Interpretating Date/Time 03/29/2017 13:58:12
--- NOTE | 2017-03-29 14:24 | EKG ---
Date Performed: 03/28/2017 Time Performed: 11:46:03 PTAGE: 52 years EKG: ECTOPIC ATRIAL RHYTHM LEFT ANTERIOR FASCICULAR BLOCK MODERATE T-WAVE ABNORMALITY, CONSIDER INFERIOR ISCHEMIA ABNORMAL ECG PREVIOUS TRACING : 01/06/2015 03.42 DOCTOR: Deng Doyle Interpretating Date/Time 03/29/2017 14:18:50
[2017-03-29] MEDS: ENOXAPARIN SODIUM 40 MG/0.4 ML SYRINGE SQ SCH (17:00)
[2017-03-29] MEDS: amLODIPine BESYLATE 5 MG TAB PO SCH (18:59)
[2017-03-30] MEDS: CHLORHEXIDINE GLUCONATE 2 % 1 PACK (2 CLOTHS)(taper/protocol) TOPICAL SCH (00:25)
[2017-03-30 00:30] VITALS: BP 139/70; PULSE 65; RESP 18; TEMP 98.3; O2SAT 96
[2017-03-30 00:56] VITALS: PULSE 68
[2017-03-30 05:30] VITALS: BP 154/96; PULSE 63; RESP 18; TEMP 98; O2SAT 95
[2017-03-30 08:00] VITALS: BP 142/86; PULSE 60; RESP 20; TEMP 98.1; O2SAT 97
[2017-03-30] MEDS: amLODIPine BESYLATE 5 MG TAB PO SCH (08:10)
[2017-03-30] MEDS: HYDROCHLOROTHIAZIDE 25 MG TAB PO SCH (08:11)
[2017-03-30] MEDS: DOCUSATE SODIUM 50 MG/SENNA 8.6 MG TAB PO SCH (08:11)
[2017-03-30] MEDS: SODIUM CHLORIDE 0.9% FLUSH 10 ML FLUSH IV FLUSH SCH (08:11)
[2017-03-30 08:57] LABS: AUTOMATED NEUTROPHIL # 5.1 TH/MM3 (1.8-7.7); BASOPHIL # 0.1 TH/MM3 (0-0.2); BASOPHIL % 0.6 % (0.0-2.0); EOSINOPHIL # 0.2 TH/MM3 (0-0.4); EOSINOPHIL % 2.2 % (0.0-4.0); HEMO FLAGS DIFF FINAL; LYMPH % 34.3 % (9.0-44.0); LYMPHOCYTE # 3.2 TH/MM3 (1.0-4.8); MEAN CELL VOLUME 76.5 FL (80.0-100.0); MEAN CORPUSCULAR HEMOGLOBIN 24.7 PG (27.0-34.0); MEAN CORPUSCULAR HGB CONC 32.2 % (32.0-36.0); NEUT % 53.9 % (16.0-70.0); PLATELET COUNT 233 TH/MM3 (150-450); RED BLOOD COUNT 5.88 MIL/MM3 (4.50-5.90); RED CELL DISTRIBUTION WIDTH 16.8 % (11.6-17.2); WHITE BLOOD COUNT 9.4 TH/MM3 (4.0-11.0)
[2017-03-30] MEDS ORDERED: LISINOPRIL 20 MG TAB PO SCH (09:00)
[2017-03-30 09:17] VITALS: PULSE 59
[2017-03-30 09:25] LABS: POTASSIUM 4.2 MEQ/L (3.5-5.1)
[2017-03-30 10:00] LABS: CKMB 2.3 NG/ML (0.5-3.6)
--- NOTE | 2017-03-30 11:09 | HHI.FPPN ---
Subjective Remarks Patient was seen and examined this morning. He is feeling well and ready to go home. He denies chest pain, headache, blurry vision shortness of breath, nausea , vomiting, abdominal pain. He is emanating without difficulty. His blood pressures have improved. He is motivated to stay on his antihypertensive medications when he goes home, and he is motivated to quit drugs as well. He states he will be able to afford $4 medications. Objective Vitals Vital Signs Date Time Temp Pulse Resp B/P (MAP) Pulse Ox O2 Delivery O2 Flow Rate FiO2 03/30/17 09:17 59 03/30/17 08:00 98.1 60 20 142/86 (104) 97 03/30/17 05:30 98.0 63 18 154/96 (115) 95 03/30/17 00:56 68 03/30/17 00:30 98.3 65 18 139/70 (93) 96 03/29/17 20:30 98.2 75 18 138/94 (109) 97 03/29/17 16:33 98.2 69 18 118/83 (95) 97 03/29/17 13:22 98.1 73 17 146/97 (113) 97 03/29/17 12:00 79 31 100 03/29/17 12:00 79 31 100 I/O 03/29/17 03/29/17 03/29/17 03/30/17 03/30/17 03/30/17 07:00 15:00 23:00 07:00 15:00 23:00 Intake Total 100 ml 710 ml Output Total 1400 ml 1600 ml Balance -1300 ml -890 ml Intake Oral 100 ml 710 ml Output Urine Total 1400 ml 1600 ml # Voids 1 2 # Bowel Movements 0 Result Diagram: 03/30/17 0706 03/30/17 0706 Imaging Last Impressions Lower Extremity Ultrasound 03/28/17 1236 Signed Impressions: Service Date/Time: Tuesday, March 28, 2017 14:19 - CONCLUSION: Normal examination. Jose Lopes Jr., MD Chest X-Ray 03/28/17 1123 Signed Impressions: Service Date/Time: Tuesday, March 28, 2017 11:39 - CONCLUSION: Normal examination for a patient of this age. No significant change has occurred. Kenan Burgess MD Objective Remarks GENERAL: Well-nourished, well-developed thin Angle male lying in bed in no apparent distress. SKIN: Warm and dry. Multiple tattoos, no ecchymoses or rashes noted. HEAD: Normocephalic. Atraumatic. EYES: No scleral icterus. Mild conjunctival injection. No injection or drainage. NECK: Supple, trachea midline. No JVD or lymphadenopathy. CARDIOVASCULAR: Regular rate and rhythm without murmurs, gallops, or rubs. RESPIRATORY: Breath sounds equal bilaterally without crackles, wheezes, rhonchi. No accessory muscle use. GASTROINTESTINAL: Abdomen soft, non-tender, nondistended. Normal bowel sounds. EXTREMITIES: No cyanosis and no lower extremity edema. Strong 2+ pulses in the distal extremities bilaterally. NEUROLOGICAL: Awake, alert. Non-focal. Cranial nerves intact. Appropriate on exam. Medications and IVs Inpatient Medications Acetaminophen (Tylenol) 650 mg Q6H PRN PO PAIN SCALE 1 TO 10, FEVER >101; Start 03/28/17 at 16:15 Amlodipine Besylate (Norvasc) 5 mg DAILY PO Last administered on 03/30/17 08: 10; Start 03/29/17 at 19:00 Bisacodyl (Dulcolax Supp) 10 mg DAILY PRN RECTAL SEVERE CONSITIPATION; Start 03/28/17 at 16:15 Chlorhexidine Gluconate (Chlorhexidine 2% Cloth) 3 pack UNSCH PRN TOPICAL HYGIENIC CARE; Start 03/28/17 at 20:45; Stop 04/02/17 at 20:43 Clonidine (Catapres) 0.1 mg Q6H PRN PO SBP> OR = 180, DBP> OR = 100 Last administered on 03/28/17 21:16; Start 03/28/17 at 16:15 Enalaprilat (Vasotec Inj) 1.25 mg Q6H PRN IV PUSH SBP> OR = 180, DBP> OR = 100 Last administered on 03/29/17 03:07; Start 03/28/17 at 16:15 Enoxaparin Sodium (Lovenox Inj) 40 mg Q24H SQ Last administered on 03/29/17 17:00; Start 03/28/17 at 17:00 Furosemide (Lasix Inj) 40 mg ONCE ONCE IV PUSH Last administered on 21:16; Start 03/28/17 at 20:45; Stop 03/28/17 at 20:46; Status DC Furosemide (Lasix) 40 mg BID@09,18 PO Last administered on 03/29/17 09:28; Start 03/29/17 at 09:00; Stop 03/29/17 at 12:13; Status DC Hydrochlorothiazide (Hydrodiuril) 25 mg DAILY PO Last administered on 08:11; Start 03/29/17 at 09:00 Lactulose (Lactulose Liq) 30 ml DAILY PRN PO SEVERE CONSITIPATION; Start 03/28 at 16:15 Lisinopril (Prinivil) 20 mg DAILY PO Last administered on 03/30/17 08:11; Start 03/30/17 at 09:00 Magnesium Hydroxide (Milk Of Magnesia Liq) 30 ml Q12H PRN PO Mild constipation ; Start 03/28/17 at 16:15 Miscellaneous Information Patient in critical care unit? Ass... [id number] ; Start 03/28/17 at 20:45 Nicardipine HCl 25 mg/Sodium Chloride 250 ml @ 50 mls/hr TITRATE PRN IV Hypertension Last administered on 03/29/17 05:44; Start 03/28/17 at 18:30; Stop 03/29/17 at 12:17; Status DC Nitroglycerin (Nitroglycerin 2% Oint) 1 inch ONCE ONCE TOPICAL Last administered on 03/28/17 13:27; Start 03/28/17 at 13:15; Stop 03/28/17 at 13 :16; Status DC Potassium Chloride (KCl) 40 meq ONCE ONCE PO Last administered on 03/29/17 09:28; Start 03/29/17 at 07:00; Stop 03/29/17 at 07:03; Status DC Senna/Docusate Sodium (Melva-Colace) 1 tab BID PO Last administered on 09:28; Start 03/28/17 at 21:00 Sennosides (Senokot) 17.2 mg Q12H PRN PO Moderate constipation; Start at 16:15 Sodium Chloride (NS Flush) 2 ml BID IV FLUSH Last administered on 03/30/17 08 :11; Start 03/28/17 at 21:00 A/P Assessment and Plan 52 year old male who presents with HTN urgency and LE edema Admitted to inpatient in order to start drip. Discharge Planning Patient to be discharged home today. He'll be discharged with current inpatient antihypertensive regimen. He needs follow-up with PCP in one week for BP monitoring. Problem List: (1) Hypertensive urgency ICD Codes: I16.0 - Hypertensive urgency Status: Resolved Plan: Hypertensive urgency resolved. Patient is asymptomatic. Blood pressures improved on current regimen as above. Will discharge with prescription for amlodipine 5mg PO daily at bedtime, HCTZ-lisinopril 25-20mg daily in the morning PATRICK noted, expected with lisinopril. Recommend follow-up BMP in approximately 1- 2 weeks along with BP check Hospital course: Presented with HTN urgency, initial BP 205/106. Given lisinopril and nitropaste. BP remained elevated so residents paged for admission. BP 170/102 on re-evaluation at 1630, appropriately responsive. Goal BP <160/90 tonight, with overall goal <140/90 * Admit to observation, changed to inpatient after CDU declined his admittance. * VS q4hr * Amlodipine 5mg daily to initiate now * Clonidine PRN 0.1mg PO for BP >180/100 * Cardiac enzymes and troponin to trend along with EKG * were all negative * Lasix 40mg x 1 in ED, will continue Lasix 40mg BID for now * d/c'd on 03/29 due to resolution of edema * Echocardiogram * Repeat labs in AM * Nicardipine drip as initiated due to elevated BPs, d/c'd on 03/29 * BP regimen initiated today as follows, will monitor for effectiveness * HCTZ 25mg po qD and Lisinopril 20mg po qD in the AM * Amlodipine 5mg po qD at PM (2) HTN (hypertension) ICD Codes: I10 - HTN (hypertension) Status: Chronic Plan: As above (3) Drug abuse ICD Codes: F19.10 - Other psychoactive substance abuse, uncomplicated Status: Chronic Plan: UDS positive for cocaine, opiates, and cannabinoids. * Spoke with patient about cessation of drug use * Will provide him information for counseling and rehab programs (4) Tobacco dependency ICD Codes: F17.200 - Tobacco dependency Status: Chronic Plan: Declines nicotine patch Counseling on tobacco cessation UDS ordered due to history of tobacco dependence (5) Fluids/Electrolytes/Nutrition/Prophylaxis Status: Acute Plan: Fluids: tolerating PO Electrolytes: monitor and replete as needed Nutrition: heart-healthy diet DVT Prophylaxis: Early ambulation. SCDs. Lovenox GI Prophylaxis: None indicated Angelique Epps MD R2 Mar 30, 2017 11:09
[2017-03-30 12:00] VITALS: BP 122/91; PULSE 75; RESP 20; TEMP 98.4; O2SAT 97
[2017-03-30] MEDS ORDERED: AMLO5 PO (12:30)
[2017-03-30] MEDS ORDERED: LISI20TA3 PO (12:30)
--- NOTE | 2017-03-30 12:30 | HHI.DCPOC ---
Discharge Care Plan Diagnosis: (1) HTN (hypertension) (2) Pedal edema Goals to Promote Your Health * To prevent worsening of your condition and complications * To maintain your health at the optimal level Directions to Meet Your Goals Take your medications as prescribed Follow your dietary instruction Follow activity as directed Keep your appointments as scheduled Take your immunizations and boosters as scheduled If your symptoms worsen call your PCP, if no PCP go to Urgent Care Center or Emergency Room Smoking is Dangerous to Your Health. Avoid second hand smoke Call the 24-hour hour crisis hotline for domestic abuse at Angelique Epps MD R2 Mar 30, 2017 12:30
--- NOTE | 2017-03-30 14:43 | HHI.DS ---
Discharge Summary Admission Date Mar 28, 2017 at 18:11 Discharge Date: Mar 30, 2017 Admitting Diagnosis Hypertension/Pedal Edema (1) Hypertensive urgency Diagnosis: Principal Plan: Hypertensive urgency resolved. Patient is asymptomatic. Blood pressures improved on current regimen as above. Will discharge with prescription for amlodipine 5mg PO daily at bedtime, HCTZ-lisinopril 25-20mg daily in the morning PATRICK noted, expected with lisinopril. Recommend follow-up BMP in approximately 1- 2 weeks along with BP check. Hospital course: Presented with HTN urgency, initial BP 205/106. Given lisinopril and nitropaste. BP remained elevated so residents paged for admission. BP 170/102 on re-evaluation at 1630, appropriately responsive. Goal BP <160/90 tonight, with overall goal <140/90 * Admit to observation, changed to inpatient after CDU declined his admittance. * VS q4hr * Amlodipine 5mg daily to initiate now * Clonidine PRN 0.1mg PO for BP >180/100 * Cardiac enzymes and troponin to trend along with EKG * were all negative * Lasix 40mg x 1 in ED, will continue Lasix 40mg BID for now * d/c'd on 03/29 due to resolution of edema * Echocardiogram * Repeat labs in AM * Nicardipine drip as initiated due to elevated BPs, d/c'd on 03/29 * BP regimen initiated today as follows * HCTZ 25mg po qD and Lisinopril 20mg po qD in the AM * Amlodipine 5mg po qD at PM ICD Codes: I16.0 - Hypertensive urgency Status: Resolved (2) HTN (hypertension) Diagnosis: Principal Plan: As above ICD Codes: I10 - HTN (hypertension) Status: Chronic (3) Drug abuse Diagnosis: Secondary Plan: UDS positive for cocaine, opiates, and cannabinoids. * Spoke with patient about cessation of drug use * Will provide him information for counseling and rehab programs ICD Codes: F19.10 - Other psychoactive substance abuse, uncomplicated Status: Chronic (4) Tobacco dependency Diagnosis: Secondary Plan: Declines nicotine patch Counseling on tobacco cessation UDS ordered due to history of tobacco dependence ICD Codes: F17.200 - Tobacco dependency Status: Chronic (5) Fluids/Electrolytes/Nutrition/Prophylaxis Diagnosis: Principal Plan: Fluids: tolerating PO Electrolytes: monitor and replete as needed Nutrition: heart-healthy diet DVT Prophylaxis: Early ambulation. SCDs. Lovenox GI Prophylaxis: None indicated Status: Acute Brief History Patient is a 52 year old male with a history of HTN who presents to the ED for evaluation of LE edema. Onset was 2-3 days ago, sudden onset, not associated with pain. He does have [place] over the last few months, lasting 4 minutes at a time. He does [employer] work for a living and has no symptoms with exertion. BP improving on meds given in ED but still elevated. He denies any other symptoms. Diet is notable for lots of salt in home-cooked meals, meats. He eats a good amount of vegetables. No history of HTN in the past, but has had intermittent headaches, but none in the last couple of days. CBC/BMP: 03/30/17 0706 03/30/17 0706 Significant Findings Laboratory Tests Test 03/28/17 11:40 03/28/17 11:45 03/28/17 17:50 03/28/17 20:00 Hemoglobin 12.4 GM/DL (13.0-17.0) Mean Corpuscular Volume 76.9 FL (80.0-100.0) Mean Corpuscular Hemoglobin 24.4 PG (27.0-34.0) Mean Corpuscular Hemoglobin Concent 31.8 % (32.0-36.0) Albumin 3.2 GM/DL (3.4-5.0) Chloride Level 108 MEQ/L (98-107) Estimat Glomerular Filtration Rate 86 ML/MIN (>89) Total Creatine Kinase 462 U/L (39-308) 419 U/L (39-308) Troponin I LESS THAN 0.02 NG/ML LESS THAN 0.02 NG/ML Urine Mucus FEW /lpf (OCC) Urine Opiates Screen POS (NEG) Urine Cocaine Screen POS (NEG) Urine Cannabinoids Screen POS (NEG) Test 03/28/17 23:10 03/29/17 04:30 03/30/17 07:06 Total Creatine Kinase 376 U/L (39-308) 355 U/L (39-308) Troponin I LESS THAN 0.02 NG/ML Mean Corpuscular Volume 76.9 FL (80.0-100.0) 76.5 FL (80.0-100.0) Mean Corpuscular Hemoglobin 24.6 PG (27.0-34.0) 24.7 PG (27.0-34.0) Estimat Glomerular Filtration Rate 86 ML/MIN (>89) 65 ML/MIN (>89) Monocytes (%) (Auto) 9.0 % (0.0-8.0) Blood Urea Nitrogen 22 MG/DL (7-18) Creatinine 1.40 MG/DL (0.60-1.30) PE at Discharge GENERAL: Well-nourished, well-developed thin Angle male lying in bed in no apparent distress. SKIN: Warm and dry. Multiple tattoos, no ecchymoses or rashes noted. HEAD: Normocephalic. Atraumatic. EYES: No scleral icterus. Mild conjunctival injection. No injection or drainage. NECK: Supple, trachea midline. No JVD or lymphadenopathy. CARDIOVASCULAR: Regular rate and rhythm without murmurs, gallops, or rubs. RESPIRATORY: Breath sounds equal bilaterally without crackles, wheezes, rhonchi. No accessory muscle use. GASTROINTESTINAL: Abdomen soft, non-tender, nondistended. Normal bowel sounds. EXTREMITIES: No cyanosis and no lower extremity edema. Strong 2+ pulses in the distal extremities bilaterally. NEUROLOGICAL: Awake, alert. Non-focal. Cranial nerves intact. Appropriate on exam. Hospital Course Patient was admitted with HTN urgency and LE edema. LE edema workup included US LE for DVT--negative. Lasix 40mg IV x 2-3 doses given with significant improvement of LE edema which did not recur. HTN managed with PO medications, initially ineffective thus nicardipine gtt started overnight. HTN was asymptomatic aside from possibly-associated LE edema. Echo showing LVH, normal EF of 55-60%. Pt was started on above-mentioned antiHTN regimen with improvement in BP over second day of stay. He was noted to have UDS + marijuana , cocaine, and opiates and was counseled on cessation. He was stable for d/c with counseling to continue medications and f/u with a PCP in 1 week for BP check. He will also need BMP for PATRICK monitoring given ACEI (expected increase in creatinine noted on d/c, likely to resolve on repeat BMP in coming weeks). Case mgmt evaluated pt for assistance in establishing with PCP and getting blue card. Pt Condition on Discharge: Stable Discharge Disposition: Discharge Home Discharge Instructions DIET: Follow Instructions for: Heart Healthy Diet Activities you can perform: Regular-No Restrictions Follow up Referrals: PCP Follow-up - 1 Week New Medications: Lisinopril-Hctz (Lisinopril-Hctz) 20-25 Mg Tab 1 TAB PO DAILY for Blood Pressure Management, #30 TAB 0 Refills Amlodipine (Norvasc) 5 Mg Tab 5 MG PO DAILY, #30 TAB Take one tab every night Angelique Epps MD R2 Mar 30, 2017 14:43
== END 2017-03-30 13:42 | disposition home or self-care (01) | DRG 305 ==
LOC: NEPC 10:33 → NEDA 16:00 → OBSVTOIN 18:11 → HIME 19:45 → N05A 03-29 13:10
PROVIDERS: ADMIT Family Medicine; ATTEND Family Medicine
DX: I16.0 Hypertensive urgency (principal); N17.9 Acute kidney failure, unspecified; F11.20 Opioid dependence, uncomplicated; F17.200 Nicotine dependence, unspecified, uncomplicated; F19.10 Other psychoactive substance abuse, uncomplicated; I44.4 Left anterior fascicular block; R60.0 Localized edema; I10 Essential (primary) hypertension; Z82.49 Family history of ischemic heart disease and other diseases of the circulatory system
CPT/HCPCS: 71010; 80048; 80053; 80307; 81001; 82550; 82552; 83605; 83735; 83880; 84484; 85025; 85610; 85730; 87641; 93005; 93306; 93970; 96374; J1650; J1940; J7050

== ENCOUNTER 2017-09-18 11:35 | Emergency (ER) | payer SELFPAY ==
[~2017-09-18] VITALS: Ht 170.2 cm; Wt 59.1 kg
[~2017-09-18 11:35] MED LIST changes: -1-ME1LIQ PO; +AMLO5 PO; +LISI20TA3 PO
[2017-09-18 11:46] VITALS: BP 232/112; PULSE 66; RESP 18; TEMP 98.4; O2SAT 100
[2017-09-18 15:08] LABS: AUTOMATED NEUTROPHIL # 5.5 TH/MM3 (1.8-7.7); BASOPHIL # 0.1 TH/MM3 (0-0.2); BASOPHIL % 0.6 % (0.0-2.0); EOSINOPHIL # 0.2 TH/MM3 (0-0.4); EOSINOPHIL % 1.6 % (0.0-4.0); HEMATOCRIT 43.2 % (39.0-51.0); HEMOGLOBIN 13.4 GM/DL (13.0-17.0); LYMPH % 33.1 % (9.0-44.0); LYMPHOCYTE # 3.3 TH/MM3 (1.0-4.8); MEAN CELL VOLUME 77.3 FL (80.0-100.0); MEAN CORPUSCULAR HGB CONC 31.1 % (32.0-36.0); MEAN PLATELET VOLUME 8.7 FL (7.0-11.0); MONO % 8.4 % (0.0-8.0); MONOCYTE # 0.8 TH/MM3 (0-0.9); NEUT % 56.3 % (16.0-70.0); PLATELET COUNT 202 TH/MM3 (150-450); RED BLOOD COUNT 5.59 MIL/MM3 (4.50-5.90); WHITE BLOOD COUNT 9.8 TH/MM3 (4.0-11.0)
[2017-09-18 15:15] LABS: BICARBONATE 29.1 MEQ/L (21.0-32.0); CALCIUM 8.8 MG/DL (8.5-10.1); CREATININE 1.29 MG/DL (0.60-1.30)
[2017-09-18] MEDS ORDERED: METH10TA PO (15:33)
--- NOTE | 2017-09-18 15:35 | PD ---
HPI Chief Complaint: Hypertension Time Seen by Provider: 15:31 Travel History International Travel<30 days: No Contact w/Intl Traveler<30days: No Traveled to known affect area: No History of Present Illness HPI This is a 52-year-old male with history of hypertension who presents for evaluation of asymptomatic hypertension. He reports that today he went to a methadone clinic and his blood pressure was checked and was elevated in the low 200/100 range. He was sent here for further evaluation. He reports that he is asymptomatic. He denies chest pain, blurred vision, headache, shortness of breath, nausea or vomiting. He has a long-standing history of hypertension, he reports that in the hospital he was prescribed 3 antihypertensive medication which he ran out of 1-2 weeks ago. He has no other complaints at this time. [facility] Past Medical History Diminished Hearing: No Hypertension: Yes Social History Alcohol Use: No Tobacco Use: Yes (06/13 PPD) Substance Use: Yes (OPIATES DEPENDENT, MARIJUANA, HEROINE, COCCAINE) Allergies-Medications (Allergen,Severity, Reaction): Coded Allergies: No Known Allergies (Unverified , 03/28/17) Reported Meds & Prescriptions Reported Meds & Active Scripts Active Norvasc (Amlodipine Besylate) 5 Mg Tab 5 Mg PO DAILY Take one tab every night Lisinopril-Hctz 20-25 Mg Tab 1 Tab PO DAILY Reported Methadone (Methadone HCl) 10 Mg Tab 30 Mg PO DAILY Review of Systems Except as stated in HPI: all other systems reviewed are Neg Physical Exam Narrative GENERAL: Well-developed well-nourished male in no acute distress, hypertensive in triage SKIN: Warm and dry. HEAD: Atraumatic. Normocephalic. EYES: Pupils equal and round. No scleral icterus. No injection or drainage. ENT: No nasal bleeding or discharge. Mucous membranes pink and moist. NECK: Trachea midline. No JVD. CARDIOVASCULAR: Regular rate and rhythm. No murmur appreciated. RESPIRATORY: No accessory muscle use. Clear to auscultation. Breath sounds equal bilaterally. GASTROINTESTINAL: Abdomen soft, non-tender, nondistended. Hepatic and splenic margins not palpable. MUSCULOSKELETAL: No obvious deformities. No clubbing. No cyanosis. No edema. NEUROLOGICAL: Awake and alert. No obvious cranial nerve deficits. Motor grossly within normal limits. Normal speech. PSYCHIATRIC: Appropriate mood and affect; insight and judgment normal. Data Data Last Documented VS Vital Signs Date Time Temp Pulse Resp B/P (MAP) Pulse Ox O2 Delivery O2 Flow Rate FiO2 09/18/17 16:34 51 209/106 (140) 09/18/17 15:38 18 97 Room Air 09/18/17 11:46 98.4 Orders Orders Complete Blood Count With Diff (09/18/17 11:49) Basic Metabolic Panel (Bmp) (09/18/17 11:49) Clonidine (Catapres) (09/18/17 15:45) Lisinopril (Prinivil) (09/18/17 15:45) Hydrochlorothiazide (Hydrodiuril) (09/18/17 15:45) Ed Discharge Order (09/18/17 16:49) Labs Laboratory Tests Test 09/18/17 13:52 White Blood Count 9.8 TH/MM3 Red Blood Count 5.59 MIL/MM3 Hemoglobin 13.4 GM/DL Hematocrit 43.2 % Mean Corpuscular Volume 77.3 FL Mean Corpuscular Hemoglobin 24.0 PG Mean Corpuscular Hemoglobin Concent 31.1 % Red Cell Distribution Width 18.0 % Platelet Count 202 TH/MM3 Mean Platelet Volume 8.7 FL Neutrophils (%) (Auto) 56.3 % Lymphocytes (%) (Auto) 33.1 % Monocytes (%) (Auto) 8.4 % Eosinophils (%) (Auto) 1.6 % Basophils (%) (Auto) 0.6 % Neutrophils # (Auto) 5.5 TH/MM3 Lymphocytes # (Auto) 3.3 TH/MM3 Monocytes # (Auto) 0.8 TH/MM3 Eosinophils # (Auto) 0.2 TH/MM3 Basophils # (Auto) 0.1 TH/MM3 CBC Comment DIFF FINAL Differential Comment Blood Urea Nitrogen 14 MG/DL Creatinine 1.29 MG/DL Random Glucose 93 MG/DL Calcium Level 8.8 MG/DL Sodium Level 140 MEQ/L Potassium Level 4.0 MEQ/L Chloride Level 105 MEQ/L Carbon Dioxide Level 29.1 MEQ/L Anion Gap 6 MEQ/L Estimat Glomerular Filtration Rate 71 ML/MIN MDM Medical Decision Making Medical Screen Exam Complete: Yes Emergency Medical Condition: Yes Medical Record Reviewed: Yes Differential Diagnosis Medication refill, hypertensive urgency, hypertensive emergency Narrative Course The patient appears well, he is asymptomatic. He is hypertensive in triage, lab work was obtained in triage. CBC and BMP are unremarkable. He was given lisinopril hydrochlorothiazide as well as clonidine with some improvement in his blood pressure. He will be discharged with a 30 day supply of amlodipine, hydrochlorothiazide, lisinopril as previously prescribed. He is stable for discharge. Diagnosis Primary Impression: HTN (hypertension) Additional Impression: Medication refill Referrals: [facility] Additional Instructions: Medication as prescribed. Monitor your blood pressure regular basis and keep a journal of these readings. Follow-up with a primary care physician for continual management of her blood pressure. Return for any emergent medical conditions. Med/Other Pt SpecificInfo: Prescription(s) given Scripts Amlodipine (Norvasc) 5 Mg Tab 5 MG PO DAILY, #30 TAB Take one tab every night Prov: Patria Diaz MD 09/18/17 Lisinopril-Hctz (Lisinopril-Hctz) 20-25 Mg Tab 1 TAB PO DAILY for Blood Pressure Management, #30 TAB 0 Refills Prov: Patria Diaz MD 09/18/17 Disposition: 01 DISCHARGE HOME Condition: Stable Jens Hines Sep 18, 2017 15:35
[2017-09-18 15:38] VITALS: BP 215/108; PULSE 52; RESP 18; O2SAT 97
[2017-09-18] MEDS ORDERED: AMLO5 PO (15:42)
[2017-09-18] MEDS ORDERED: LISI20TA3 PO (15:42)
[2017-09-18] MEDS ORDERED: LISINOPRIL 20 MG TAB PO ONE (15:45)
[2017-09-18] MEDS ORDERED: HYDROCHLOROTHIAZIDE 25 MG TAB PO ONE (15:45)
[2017-09-18] MEDS ORDERED: cloNIDine HCL 0.2 MG TAB PO ONE (15:45)
[2017-09-18 16:34] VITALS: BP 209/106; PULSE 51
--- NOTE | 2017-09-18 16:51 | PD ---
Physical Exam Date Seen by Provider: Sep 18, 2017 Narrative Patient was sent us by the methadone clinic for hypertension. His hypertension is managed by the emergency room. He does not have a primary care provider. Data Data Last Documented VS Vital Signs Date Time Temp Pulse Resp B/P (MAP) Pulse Ox O2 Delivery O2 Flow Rate FiO2 09/18/17 16:34 51 209/106 (140) 09/18/17 15:38 18 97 Room Air 09/18/17 11:46 98.4 Orders Orders Complete Blood Count With Diff (09/18/17 11:49) Basic Metabolic Panel (Bmp) (09/18/17 11:49) Clonidine (Catapres) (09/18/17 15:45) Lisinopril (Prinivil) (09/18/17 15:45) Hydrochlorothiazide (Hydrodiuril) (09/18/17 15:45) Ed Discharge Order (09/18/17 16:49) Labs Laboratory Tests Test 09/18/17 13:52 White Blood Count 9.8 TH/MM3 Red Blood Count 5.59 MIL/MM3 Hemoglobin 13.4 GM/DL Hematocrit 43.2 % Mean Corpuscular Volume 77.3 FL Mean Corpuscular Hemoglobin 24.0 PG Mean Corpuscular Hemoglobin Concent 31.1 % Red Cell Distribution Width 18.0 % Platelet Count 202 TH/MM3 Mean Platelet Volume 8.7 FL Neutrophils (%) (Auto) 56.3 % Lymphocytes (%) (Auto) 33.1 % Monocytes (%) (Auto) 8.4 % Eosinophils (%) (Auto) 1.6 % Basophils (%) (Auto) 0.6 % Neutrophils # (Auto) 5.5 TH/MM3 Lymphocytes # (Auto) 3.3 TH/MM3 Monocytes # (Auto) 0.8 TH/MM3 Eosinophils # (Auto) 0.2 TH/MM3 Basophils # (Auto) 0.1 TH/MM3 CBC Comment DIFF FINAL Differential Comment Blood Urea Nitrogen 14 MG/DL Creatinine 1.29 MG/DL Random Glucose 93 MG/DL Calcium Level 8.8 MG/DL Sodium Level 140 MEQ/L Potassium Level 4.0 MEQ/L Chloride Level 105 MEQ/L Carbon Dioxide Level 29.1 MEQ/L Anion Gap 6 MEQ/L Estimat Glomerular Filtration Rate 71 ML/MIN [facility] Supervised Visit with ULYSSES: Yes Narrative Course I, Dr. Diaz, have reviewed the advance practice practitioner's documentation and am in agreement, met with the patient face to face, made the diagnosis, and the medical decision making was done by me. *My assessment and Findings: Patient is neurologically intact. He has no complaints of chest pain and no EKG findings suggestive of a STEMI. GFR is stable. Please see Jens Hines PA-C's note for results of laboratory and radiographic evaluation, ED course, final diagnosis and disposition Diagnosis Primary Impression: HTN (hypertension) Additional Impression: Medication refill Scripts Amlodipine (Norvasc) 5 Mg Tab 5 MG PO DAILY, #30 TAB Take one tab every night Prov: Patria Diaz MD 09/18/17 Lisinopril-Hctz (Lisinopril-Hctz) 20-25 Mg Tab 1 TAB PO DAILY for Blood Pressure Management, #30 TAB 0 Refills Prov: Patria Diaz MD 09/18/17 Patria Diaz MD Sep 18, 2017 16:51
[2017-09-18 17:06] VITALS: BP 195/111
== END 2017-09-18 17:07 | disposition home or self-care (01) ==
LOC: NEPC 11:35
DX: I10 Essential (primary) hypertension (principal); F17.200 Nicotine dependence, unspecified, uncomplicated; Z76.0 Encounter for issue of repeat prescription
CPT/HCPCS: 80048; 85025; 99283